=== PATIENT | male | born 1955 | race Two or more races ===

== ENCOUNTER 2017-07-04 16:29 | Emergency (ER) | payer MEDICARE, MEDICAID ==
[~2017-07-04 16:29] MED LIST: ASP325 PO; ESOM40CA42 PO; IBUP400T13 PO; LOR75 PO; PROM-110 PO; PROM25SU8 RC
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
[2017-07-04] MEDS ORDERED: VENL150C61 PO (16:42)
[2017-07-04] MEDS ORDERED: MIRT-22 PO (16:42)
[2017-07-04] MEDS ORDERED: TAMS0.4C70 PO (16:42)
[2017-07-04] MEDS ORDERED: DICL-195 PO (16:42)
[2017-07-04] MEDS ORDERED: LORazepam 1 MG TAB PO ONE (16:55)
[2017-07-04 17:30] VITALS: BP 124/99
[2017-07-04 17:38] LABS: PLATELET COUNT, AUTOMATED 227 K/uL (150-450)
== END 2017-07-04 18:28 ==
LOC: ER 16:33
DX: F32.9 Major depressive disorder, single episode, unspecified (principal); R45.851 Suicidal ideations
CPT/HCPCS: 36415; 80305; 81001; 83735; 84443; 85025; 99283; A9270; G0480; 80320; 80329; 82040; 82247; 82310; 82374; 82435; 82565; 82947; 84075; 84132; 84155; 84295; 84450; 84460; 84520

== ENCOUNTER 2017-07-04 18:06 | Inpatient (IN) | payer MEDICARE, MEDICAID ==
[~2017-07-04] VITALS: Ht 172.7 cm; Wt 113.4 kg
[~2017-07-04 18:06] MED LIST changes: +DICL-195 PO; +MIRT-22 PO; +TAMS0.4C70 PO; +VENL150C61 PO
[2017-07-04 18:45] VITALS: BP 130/96
[2017-07-04 20:34] VITALS: BP 130/96
[2017-07-04] MEDS: MIRTAZAPINE 30 MG TAB 30 MG TAB PO SCH (21:51)
[2017-07-04] MEDS: DICLOFENAC SOD 75 MG TABCR PO SCH (21:51)
[2017-07-04] MEDS ORDERED: MAG HYD/AL HYD/SIMETH 30ML UDC PO PRN (22:20)
[2017-07-05 04:01] VITALS: BP 154/110
[2017-07-05] MEDS: MULTIVITAMINS TAB PO SCH (08:14)
[2017-07-05] MEDS: VENLAFAXINE XR 75 MG CAPCR PO SCH (08:15)
[2017-07-05] MEDS: DICLOFENAC SOD 75 MG TABCR PO SCH ×2 (08:15→18:24)
[2017-07-05] MEDS: TAMSULOSIN HCL 0.4 MG CAP PO SCH (09:04)
[2017-07-05] MEDS ORDERED: CHOLECALCIFEROL 1000 UNIT TAB PO SCH (09:55)
[2017-07-05] MEDS: OMEGA-3 500 MG CAP PO SCH (10:06)
[2017-07-05 11:12] VITALS: BP 119/85
[2017-07-05] MEDS ORDERED: CHOLECALCIFEROL 1000 UNIT TAB PO ONE (12:20)
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
[2017-07-05] MEDS: ACETAMINOPHEN 325 MG TAB PO PRN (20:39)
[2017-07-05] MEDS: MIRTAZAPINE 30 MG TAB 30 MG TAB PO SCH (20:39)
[2017-07-06 06:14] VITALS: BP 109/72
[2017-07-06] MEDS: CHOLECALCIFEROL 1000 UNIT TAB PO SCH (08:02)
[2017-07-06] MEDS: OMEGA-3 500 MG CAP PO SCH (08:02)
[2017-07-06] MEDS: DICLOFENAC SOD 75 MG TABCR PO SCH ×2 (08:03→17:24)
[2017-07-06] MEDS: MULTIVITAMINS TAB PO SCH (08:03)
[2017-07-06] MEDS: VENLAFAXINE XR 75 MG CAPCR PO SCH (08:03)
[2017-07-06] MEDS: TAMSULOSIN HCL 0.4 MG CAP PO SCH (08:40)
[2017-07-06 09:23] VITALS: BP 108/73
--- NOTE | 2017-07-06 10:14 | BHS Progress Note ---
[facility] - Subjective Progress Notes Subjective Patient polite and cooperative with care, and interacting well with family members on the phone during treatment team meeting. Patient is no recognizing that he and his would be better served if his were to remain in the [facility], Patient's mood improving and he will have sleep study tonight. Will continue treatment, and likely discharge tomorrow. Suicidal Ideation: Resolving Homicidal Ideation: None [facility] - Objective Physical Exam Vital Signs Vital Signs Date Time Temp Pulse Resp B/P (MAP) Pulse Ox O2 Delivery O2 Flow Rate FiO2 07/06/17 09:23 99.3 75 108/73 (85) 95 Room Air 07/06/17 06:14 2.0 07/05/17 04:01 18 Hematology Test 07/05/17 10:10 Vitamin D 25-Hydroxy 17 ng/ml (30-100) Free Thyroxine 0.98 ng/dl (0.78-2.19) Chemistry Test 07/05/17 10:10 Vitamin D 25-Hydroxy 17 ng/ml (30-100) Free Thyroxine 0.98 ng/dl (0.78-2.19) Muscle Strength and Tone: Other (baseline) Gait and Station: Other (baseline) [facility] Medications Reviewed: Side Effects, Benefits of Medication, Risks Mental Status Exam General Appearance: Casual, Well Groomed, Good Eye Contact, Cooperative, Polite , Good Interaction, Tearful, No Psychomotor Agitation, No Psychomotor Retardation, No Bizarre Mannerisms, No Tics Speech: Clear, Spontaneous, Normal Rate, Normal Rhythm, Normal Volume, Normal Tone Mood: Dysthmic/Depressed (improving) Affect: Calm, Neutral, Tearful Thought Process: Organized, Logical, Goal Directed, No Loose Associations, No Flight of Ideas Thought Content: Suicidal Ideation (resolving), No Homicidal Ideation, No Delusions, No Auditory Halllucinations, No Visual Hallucinations, No Thought Broadcasting, No Ideas of Reference, No Obsessions, No Compulsions Sensorium: Clear Cognition: Alert & Oriented-Person, Alert & Oriented-Place, Alert & Oriented- Time Memory: Immediate, Recent, Remote Intelligence: Average Insight Judgment: Fair [facility] Assessment and Plan [id number] Encounter Date: Jul 06, 2017 [id number] Encounter Time: 09:40 [facility] Plan: Necessary Precautions, Individual/Group Therapy, Admin/Titrate Meds, Educate Patient Tobacco Medications: Not Appropriate Condition Multpiple Antipsychotics Used: No Problems: (1) Adjustment disorder with depressed mood Status: Chronic Assessment & Plan: floor care specialist burn out, medical stressors, untreated sleep apnea. (2) Post traumatic stress disorder (PTSD) Status: Chronic Assessment & Plan: multiple traumatic stressors in his life that have been unaddressed Condition 1. sleep study tonight. 2. no medication changes. 3. potential discharge tomorrow. ROSELINE IGNACIO MD Jul 06, 2017 10:14
[2017-07-06] MEDS: ACETAMINOPHEN 325 MG TAB PO PRN ×2 (15:34→20:25)
[2017-07-06 18:58] VITALS: BP 106/63
[2017-07-06] MEDS: MIRTAZAPINE 30 MG TAB 30 MG TAB PO SCH (20:23)
[2017-07-07 05:44] VITALS: BP 115/79
[2017-07-07] MEDS: CHOLECALCIFEROL 1000 UNIT TAB PO SCH (08:17)
[2017-07-07] MEDS: VENLAFAXINE XR 75 MG CAPCR PO SCH (08:18)
[2017-07-07] MEDS: OMEGA-3 500 MG CAP PO SCH (08:18)
[2017-07-07] MEDS: MULTIVITAMINS TAB PO SCH (08:19)
[2017-07-07] MEDS: DICLOFENAC SOD 75 MG TABCR PO SCH (08:20)
[2017-07-07 08:30] VITALS: BP 112/76
[2017-07-07] MEDS: TAMSULOSIN HCL 0.4 MG CAP PO SCH (08:51)
[2017-07-07] MEDS ORDERED: OMEG1CAP35 PO (09:33)
[2017-07-07] MEDS ORDERED: MULT-1379 PO (09:34)
[2017-07-07] MEDS ORDERED: CHOL10005 PO (09:35)
--- NOTE | 2017-07-09 14:56 | DISCHARGE SUMMARY ---
DATE OF ADMISSION: July 04, 2017 DATE OF DISCHARGE: July 07, 2017 The patient was seen for this discharge note on the morning of 07 July 2017 at approximately 1100 hours. FINAL DIAGNOSES PER DSM-V 1. Adjustment disorder, depressed mood. 2. 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 3. Obstructive sleep apnea. 4. Social stressors dealing with alien . 5. Patient also likely having probable posttraumatic stress disorder relating to multiple traumas suffered earlier in life and as of yet unaddressed through outpatient providers. REASON FOR ADMISSION This is a very pleasant, cooperative 62-year-old male who appears to be a very accurate historian. The patient somewhat resistant to caring for himself as patient is a very giving man and continued to care for his ailing at home who suffers from physical complications related to stroke and advancing dementia as well. Patient continued to care for her at home even though patient himself having physical disabilities. Patient is very spiritual. Catholicism is very important to him, but patient eventually reaching a point that he was considering suicide and had a detailed plan worked out. Patient was cooperative with [facility] staff who engaged the patient in coming to the Emergency Room under an emergency detainment. Patient's was subsequently extracted from the home as no care provider existed while patient was on the behavioral health floor. The patient's then subsequently transferred to [facility] from overnight stay on medical floor, patient himself coming to realize that her level of care exceeded his abilities at home. Patient's mood slowly started to improve on the unit. Patient on current outpatient medications. He was able to obtain a sleep study to address longstanding sleep apnea issues that patient was not caring for as well and awaiting results of sleep study at this time. Patient then later discharged to home back into the care of [facility] and outpatient providers. Patient's was to remain in the [facility]. EXAMINATION PHYSICAL EXAMINATION: Please see emergency room note. Notable for 62-year-old male, no acute medical distress, having some chronic pain concerning right hip. VITAL SIGNS: Time of admission showed temperature 98.8, pulse 80, respiratory rate 18, blood pressure 130/96, and pulse oximetry 95 on room air. Time of discharge, temperature 98.9, pulse 90, respiratory rate 16, blood pressure 112/ 76, and pulse oximetry 92 on room air. LABORATORY DATA Vitamin D 25-hydroxy noted to be low at 17. Free T4 of 0.98, free T3 slightly elevated at 5.3, TSH 2.34. CBC unremarkable. CMP unremarkable. Toxicology screen negative with an undetectable serum alcohol level. Urinalysis was overall unremarkable. MENTAL STATUS EXAMINATION AT TIME OF DISCHARGE GENERAL APPEARANCE, BEHAVIOR, AND ATTITUDE: Patient accepting of 's condition requiring her to remain in long-term care facility from now on. Patient indicating mood had improved and agreed to follow up with [facility] again and any other providers necessary for his care. Making good eye contact. SPEECH: Within normal limits. Regular rate, rhythm, volume, and tone. MOOD: Described as improving. AFFECT: Full and bright at times and mood congruent overall. THOUGHT PROCESS: Logical, goal directed. No loose associations or flight of ideas. THOUGHT CONTENT: Free of auditory or visual hallucinations, ideas of reference , thought broadcasting, delusions, obsessions, compulsions. Patient denying adamantly any further suicidal thoughts or homicidal ideations. SENSORIUM: Clear. COGNITION: Alert and oriented to person, place, time, situation. MEMORY: Immediate, recent, and remote estimated intact. INTELLIGENCE: Average based on interview. INSIGHT AND JUDGMENT: Considered grossly intact and appropriate for observation in an outpatient setting. RESULTS OF TESTING IMAGING: None. LABORATORY DATA: See above. CONSULTATIONS None. TREATMENT Patient remained on current medications as prescribed by outpatient provider, which patient reported have been helpful. Patient did participate in individual and group therapy. HOSPITAL COURSE Patient very cooperative with stay. Patient appeared to be a very accurate and honest historian. Patient was able to complete a formal sleep study while on the unit, and we await those results. CONDITION OF PATIENT ON DISCHARGE Stable. Considered a minimal risk to himself or others and appropriate for outpatient care. DISPOSITION Patient discharged to home. He would continue outpatient meds. Patient would remain on nasal cannula O2 at night at 2L until sleep study results would come in. Patient would then follow up with recommendations through primary care provider, Dr. Velasquez. The patient would follow up with [facility], primary care provider as necessary. He was given the crisis line should symptoms return. Patient would remain on Effexor XR 150 mg daily, fish oil 1000 mg daily , Flomax 0.4 mg daily, Remeron 30 mg at bedtime, multivitamin with minerals daily, vitamin D3 4000 units daily, Voltaren 75 mg at breakfast and supper. He was given the crisis line should symptoms return. Risks, benefits, and alternatives of above discharge plan were discussed. Informed consent was given to proceed with above discharge plan by this competent patient and [facility], whom had knowledge of patient's discharge. FELIPA
== END 2017-07-07 10:56 | disposition home or self-care (01) | DRG 881 ==
LOC: BHS 18:06
PROVIDERS: ADMIT Psychiatry & Neurology Psychiatry; ATTEND Psychiatry & Neurology Psychiatry
DX: F43.21 Adjustment disorder with depressed mood (principal); R45.851 Suicidal ideations; F06.32 Mood disorder due to known physiological condition with major depressive-like episode; G47.33 Obstructive sleep apnea (adult) (pediatric); F43.12 Post-traumatic stress disorder, chronic; I10 Essential (primary) hypertension; K21.9 Gastro-esophageal reflux disease without esophagitis; N44.2 Benign cyst of testis; Z62.810 Personal history of physical and sexual abuse in childhood; Z73.3 Stress, not elsewhere classified; Z63.6 Dependent relative needing care at home; Z91.19 Patient's noncompliance with other medical treatment and regimen; Z91.5 Personal history of self-harm; Z81.1 Family history of alcohol abuse and dependence; Z90.49 Acquired absence of other specified parts of digestive tract
CPT/HCPCS: 36415; 82306; 84439; 84481

== ENCOUNTER → 2017-07-06 | Outpatient (CLI) | payer MEDICARE, MEDICAID ==
[~2017-07-06] MED LIST changes: +CHOL10005 PO; +MULT-1379 PO; +OMEG1CAP35 PO
== END ==
LOC: RESP 19:44
PROVIDERS: ATTEND Psychiatry & Neurology Psychiatry
DX: G47.33 Obstructive sleep apnea (adult) (pediatric) (principal); G47.36 Sleep related hypoventilation in conditions classified elsewhere; G47.61 Periodic limb movement disorder; E66.9 Obesity, unspecified

== ENCOUNTER 2017-07-21 03:51 | Observation (INO) | payer MEDICARE, MEDICAID ==
--- NOTE | 2017-07-20 13:42 | HISTORY AND PHYSICAL ---
DATE OF ADMISSION: July 21, 2017 CHIEF COMPLAINT Phimosis with glandular adhesions and right chronic orchialgia. HISTORY OF PRESENT ILLNESS The patient is a 62-year-old Latin-[place] male with a long history of right testicular pain and discomfort, which began in 2004 with an episode of epididymitis. He was recently referred to the urology clinic by Dr. Smith office for increasing pain. When seen in the clinic, his urinalysis was unremarkable. His PSA was 1.7. He continued to have significant pain on exam involving the right testis and epididymis. A cord block was given on June 29, 2017, which resulted in complete resolution of his pain and discomfort for several hours. However, it has returned to its baseline. Physical exam also revealed a significant glandular adhesion with phimosis, for which the patient desires definitive surgical treatment. Options for his right orchialgia were explained, including watchful waiting, nonsteroidal anti-inflammatories, operative removal with orchiectomy or possible denervation procedure. PAST MEDICAL HISTORY 1. Hypertension. 2. Sleep apnea. 3. Degenerative joint disease. 4. Depression. 5. BPH. 6. Gastroesophageal reflux disease. PAST SURGICAL HISTORY 1. Cholecystectomy. 2. Knee arthroscopy. 3. Tonsillectomy. CURRENT MEDICATIONS 1. Multivitamins. 2. Mirtazapine. 3. Flomax. 4. Venlafaxine, or Effexor. ALLERGIES No known drug allergies. SOCIAL HISTORY Patient is and lives in [place], [place]. REVIEW OF SYSTEMS Patient denies productive cough, fever, chills, chest pain, shortness of breath , nausea, vomiting, gross hematuria or flank pain. PHYSICAL EXAMINATION GENERAL: Patient is a well-developed, well-nourished adult male in no acute distress. HEENT: Normocephalic, atraumatic. CHEST: Clear to auscultation bilaterally. CARDIOVASCULAR EXAM: Regular rate and rhythm. ABDOMINAL EXAM: Soft, nontender, no masses are palpated. EXAM: Deferred to the OR. EXTREMITY EXAM: Without clubbing, cyanosis or edema. NEUROLOGICAL EXAM: Nonfocal. IMPRESSION This is a 62-year-old male with chronic glandular adhesion with phimosis as well as chronic right orchialgia. PLAN We will perform a simple right orchiectomy followed by circumcision. FELIPA
[~2017-07-21] VITALS: Ht 172.7 cm; Wt 113.4 kg
[2017-07-21] VITALS (9 sets, daily range): BP systolic 96–191; BP diastolic 66–117
[2017-07-21 06:26] LABS: PLATELET COUNT, AUTOMATED 209 K/uL (150-450)
[2017-07-21] MEDS ORDERED: FAMOTIDINE 20 MG TAB PO ONE (06:45)
[2017-07-21] MEDS ORDERED: LIDOCAINE/SOD BICARB 8.4% SYR ID ONE (06:45)
[2017-07-21] MEDS ORDERED: NORMOSOL R SOLN(*) 1000 ML BAG 1,000 ML IV PRN (06:45)
[2017-07-21] MEDS ORDERED: MIDAZOLAM 2 MG/2 ML VIAL IVP PRN (06:45)
[2017-07-21] MEDS ORDERED: ceFAZolin(*) 1 GM VIAL 1 GM in NS(*) 0.9% 100 ML ADDVANT BAG 100 ML IVPB ONE (06:45)
[2017-07-21] MEDS ORDERED: NEOMYCIN/POLYMYX/BACITR 30 GM TP ONE (07:17)
[2017-07-21] MEDS ORDERED: ROPIVACAINE 0.2% 20 ML VIAL ONE (07:18)
[2017-07-21] MEDS ORDERED: POVIDONE IOD 10% OINT 30 GM TB TP ONE (07:18)
[2017-07-21] MEDS ORDERED: fentaNYL CITR 100 MCG/2 ML AMP ONE ×3 (07:20→09:58)
[2017-07-21] MEDS ORDERED: DEXAMETHASONE SOD 4 MG/ML VIAL ONE (07:20)
[2017-07-21] MEDS ORDERED: LIDOCAINE MPF 1% 5 ML VIAL ONE (07:20)
[2017-07-21] MEDS ORDERED: PROPOFOL EMUL(*) 10MG/ML 20 ML 20 ML ONE (07:20)
[2017-07-21] MEDS ORDERED: ONDANSETRON 4 MG/2 ML VIAL ONE (07:20)
[2017-07-21] MEDS ORDERED: NS IR ONE (08:25)
[2017-07-21] MEDS ORDERED: [UNRECOGNIZED DRUG - OTHER] IR ONE (08:25)
[2017-07-21] MEDS ORDERED: NS(*) 0.9% 1000 ML BAG 1,000 ML IV PRN (09:45)
[2017-07-21] MEDS ORDERED: MAG HYD/AL HYD/SIMETH 30ML UDC PO PRN (09:50)
[2017-07-21] MEDS ORDERED: MAGNESIUM HYDROXIDE* 30ML UDCP PO PRN (09:50)
[2017-07-21] MEDS ORDERED: ZOLPIDEM TARTRATE 10 MG TAB PO PRN (09:50)
[2017-07-21] MEDS: NEOMYCIN/POLYMYX/BACITR OINT 1 PACKET TP SCH ×2 (14:00→20:22)
[2017-07-21] MEDS: IBUPROFEN 600 MG TAB PO PRN ×2 (14:09→20:22)
--- NOTE | 2017-07-21 17:44 | OPERATIVE REPORT 1 ---
EVENT DATE: July 21, 2017 SURGEON: Rashi Cantu MD. ANESTHESIOLOGIST: Melvin De MD ANESTHESIA: General anesthetic. PREOPERATIVE DIAGNOSES 1. Chronic right orchialgia. 2. Phimosis with glandular adhesion. POSTOPERATIVE DIAGNOSES 1. Chronic right orchialgia. 2. Phimosis with glandular adhesion. PROCEDURES PERFORMED 1. Right orchiectomy. 2. Adult circumcision. ESTIMATED BLOOD LOSS 10 mL INTRAVENOUS FLUIDS Crystalloid. DRAINS None. COMPLICATIONS None. PATHOLOGY Testis and foreskin for permanent analysis. CONDITION Patient awakened in the operating room and taken to the recovery area in stable condition. STATEMENT OF MEDICAL NECESSITY Patient is a 62-year-old white male with a long history of chronic right orchialgia which has been recently progressing. The patient did have a cord block in the office which resulted in complete resolution of pain for a short time. Physical exam revealed the entire testis and epididymis to be extremely sensitive and painful to exam, but no masses were palpated. Patient also has chronic phimosis with some chronic BXO changes into the prepuce. We were unable to retract his foreskin beyond approximately mid glans secondary to dense glandular adhesions. He is also being brought to the operating room for planned circumcision. Specific risks and benefits of both these procedures were discussed including bleeding, infection, scar formation, failure to solve pain or recurrent pain, and need for secondary procedure. Operative consent is signed and on the chart. DESCRIPTION OF OPERATION PERFORMED Patient was brought to the operating room. After general anesthetic was obtained, he was placed supine on the operating room table and prepped and draped in the usual sterile manner. A 4 cm right lower quadrant skin incision was made just above the external ring. It was taken down through the external ring with electrocautery. At this point, the right scrotum was everted to deliver the testis to the incision. The gubernacular attachments were taken down. The vas was isolated from the other cord structures at the external ring. It was doubly cross-clamped and incised. The end was fulgurated, and two #2 silks were tied on the vas stump. At this point, 0.25% ropivacaine was given along the cord at the internal ring. Next, the cord was isolated at the external ring and cross-clamped with two right-angle clamps. The cord and testis were then sharply removed and sent for permanent analysis. The cord was then tied first with a distal 0 silk ligature stitch, followed by a free tie more proximally. After release of the clamps, there was no bleeding identified. This wound was irrigated with copious amounts of antibiotic solution. The deep tissues were closed with interrupted 3-0 chromics. The skin was closed with a running subcuticular 4-0 Vicryl, and skin adhesive was applied. Following this, the circumcision was done. Two right-angled clamps were placed on the dorsal aspect of the foreskin, and a dorsal slit incision was performed to pull the remainder of the foreskin back and tied down the glandular adhesions. The penis was then prepped with Betadine solution. Gloves were changed, and then the circumcision was performed. First, the outer table was marked with a marking pen. The foreskin was then retracted and the inner table likewise marked. Both of these areas were incised with a 15 blade knife. The incisions were connected dorsally, and the foreskin was removed circumferentially with electrocautery. Small bleeding vessels at the skin edge were controlled with electrocautery, and then the skin edges were reapproximated with interrupted 4-0 chromic to complete the circumcision. Antibiotic ointment was placed on the glans and the incision, and a rolled gauze was placed around the penis. At the conclusion of the case, a sterile dressing was placed on the right lower quadrant skin incision, and a fluff dressing with scrotal support was applied. The patient was awakened in the operating room and taken to the recovery area in stable condition. The plan will be to keep the patient for 24-hour observation secondary to his social situation with no other home care. We will allow him to go home tomorrow on Bos[place], Colace, and Motrin. He is to continue a scrotal support and ice pack for 36 hours. We will plan to see him in the Urologic Clinic in two to four weeks. FELIPA
[2017-07-21] MEDS: DOCUSATE SODIUM 100 MG CAP PO SCH (20:22)
[2017-07-21] MEDS ORDERED: MIRTAZAPINE 15 MG TAB PO SCH (21:00)
[2017-07-22 01:07] VITALS: BP 93/52
[2017-07-22 03:30] VITALS: BP 100/66
[2017-07-22] MEDS: IBUPROFEN 600 MG TAB PO PRN ×2 (03:34→11:00)
[2017-07-22 07:36] VITALS: BP 104/76
[2017-07-22] MEDS: DOCUSATE SODIUM 100 MG CAP PO SCH (08:40)
[2017-07-22] MEDS: NEOMYCIN/POLYMYX/BACITR OINT 1 PACKET TP SCH (08:40)
[2017-07-22] MEDS ORDERED: TAMSULOSIN HCL 0.4 MG CAP PO SCH (09:00)
[2017-07-22] MEDS ORDERED: VENLAFAXINE XR 75 MG CAPCR PO SCH (09:00)
[2017-07-22 09:09] VITALS: Ht 172.7 cm; Wt 113.4 kg
[2017-07-22] MEDS ORDERED: NEOM28OI TOP (09:20)
[2017-07-22] MEDS ORDERED: IBUP600T22 PO (09:21)
[2017-07-22] MEDS ORDERED: HYDR-4309 PO (09:22)
[2017-07-22] MEDS ORDERED: DOCU-416 PO (09:23)
== END 2017-07-22 09:16 | disposition home or self-care (01) ==
LOC: OR 03:51 → MED 10:20
PROVIDERS: ADMIT Urology; ATTEND Urology
DX: N47.1 Phimosis (principal); N50.812 Left testicular pain; N50.811 Right testicular pain
CPT/HCPCS: 36415; 54150; 54520; 81001; 85025; 87088; 88305; A9270; G0378; J0690; J1100; J2001; J2250; J2405; J2704; J2795; J3010; J7030; J7050; 82040; 82247; 82310; 82374; 82435; 82565; 82947; 84075; 84132; 84155; 84295; 84450; 84460; 84520

== ENCOUNTER → 2017-08-13 | Outpatient (CLI) | payer MEDICARE, MEDICAID ==
[2017-07-22 09:09] VITALS: BMI 38.0
[~2017-08-13] MED LIST changes: +DOCU-416 PO; +HYDR-4309 PO; +IBUP600T22 PO; +NEOM28OI TOP; +TRAM-420 PO
== END ==
LOC: RESP 19:46
PROVIDERS: ATTEND Family Medicine
DX: G47.33 Obstructive sleep apnea (adult) (pediatric) (principal); G47.36 Sleep related hypoventilation in conditions classified elsewhere; R40.0 Somnolence; E66.9 Obesity, unspecified

== ENCOUNTER 2017-08-18 03:25 | Day surgery (SDC) | payer MEDICARE, MEDICAID ==
[2017-07-22 09:09] VITALS: Ht 172.7 cm; Wt 109.8 kg
[~2017-08-18] VITALS: Ht 172.7 cm; Wt 109.8 kg
[2017-08-18] MEDS ORDERED: PROPOFOL EMUL(*) 10MG/ML 20 ML 60 ML ONE (10:47)
[2017-08-18] MEDS ORDERED: LIDOCAINE MPF 1% 5 ML VIAL ONE (10:47)
[2017-08-18 13:30] VITALS: BP 94/79
[2017-08-18] MEDS ORDERED: NORMOSOL R SOLN(*) 1000 ML BAG 1,000 ML IV PRN (13:50)
[2017-08-18] MEDS ORDERED: LIDOCAINE/SOD BICARB 8.4% SYR ID ONE (13:50)
[2017-08-18 14:45] VITALS: BP 109/70
[2017-08-18 15:23] VITALS: BP 120/79
== END 2017-08-18 15:47 | disposition home or self-care (01) ==
LOC: OR 03:25
PROVIDERS: ATTEND Family Medicine
DX: Z12.11 Encounter for screening for malignant neoplasm of colon (principal); Z80.0 Family history of malignant neoplasm of digestive organs; D12.4 Benign neoplasm of descending colon
CPT/HCPCS: 00811; 45380; 88305; J2001; J2704

== ENCOUNTER 2017-09-15 20:48 | Emergency (ER) | payer MEDICARE, MEDICAID ==
[2017-07-22 09:09] VITALS: Wt 109.8 kg
[~2017-09-15 20:48] MED LIST changes: -OXYC-865 PO
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
[2017-09-15 22:40] VITALS: BP 117/84
--- NOTE | 2017-09-15 22:46 | RADIOLOGY IMAGING REPORT ---
FACILITY: [facility] PATIENT NAME: Ajay Elizabeth : 1955 MR: [id number] V: [id number] EXAM DATE: ORDERING PHYSICIAN: MARTIN SHERIDAN TECHNOLOGIST: Location: [facility] - [place] Patient: Ajay Elizabeth : 1955 Visit/Account:[id number] Date of Sevice: 09/15/2017 RIGHT KNEE: Indication: Injury. Technique: 3 views of the knee were obtained. Comparison: 03/28/2008 Findings: There is no evidence of fracture, dislocation, or other acute deformity. There is normal mi neralization of the skeletal structures. There is no evidence of joint space narrowing or osteophyte formation. The periarticular soft tissues appear unremarkable. IMPRESSION: No acute deformity or significant change. Report Dictated By: Saul Loyd MD at 09/15/2017 10:31 PM Report E-Signed By: Saul Loyd MD at 09/15/2017 10:41 PM [id number]
[2017-09-15] MEDS ORDERED: OXYC-865 PO (22:58)
[2017-09-15] MEDS ORDERED: oxyCODONE/ACETAMIN 5/325MG TH 2 TAB/BOTTLE PO ONE (23:00)
== END 2017-09-15 23:10 | disposition home or self-care (01) ==
LOC: ER 20:57
DX: S83.411A Sprain of medial collateral ligament of right knee, initial encounter (principal); W50.1XXA Accidental kick by another person, initial encounter
CPT/HCPCS: 99283; L1830

== ENCOUNTER → 2017-09-15 | Outpatient (CLI) | payer MEDICARE, MEDICAID ==
[2017-07-22 09:09] VITALS: BMI 38.0
[~2017-09-15] MED LIST changes: +OXYC-865 PO
== END ==
LOC: AMB 20:20
PROVIDERS: ATTEND Nurse Practitioner
DX: M25.561 Pain in right knee (principal); M79.89 Other specified soft tissue disorders; S09.90XA Unspecified injury of head, initial encounter; W19.XXXA Unspecified fall, initial encounter
CPT/HCPCS: A0425; A0427

== ENCOUNTER → 2018-08-21 | Outpatient (CLI) | payer MEDICARE, MEDICAID ==
[2017-07-22 09:09] VITALS: BMI 38.0
[~2018-08-21] MED LIST changes: -HYDR-4309 PO; +HYDR-653 PO; +OXYC-865 PO
--- NOTE | 2018-08-21 13:20 | RADIOLOGY IMAGING REPORT ---
[place] [facility] [place]IENT NAME: Ajay Elizabeth : 1955 MR: [id number] V: [id number] EXAM DATE: ORDERING PHYSICIAN: HERMINIO HSIEH TECHNOLOGIST: Location[place] [facility] [place] Patient: Ajay Elizabeth : 1955 Visit/Account:[id number] Date of Sevice: 08/21/2018 CHEST PA LAT INDICATION: Shortness of breath COMPARISON: 04/29/2008 FINDINGS: Heart size within normal limits. There is no focal infiltrate or lobar consolidation. There is mild elevation of the right hemidiaph ragm. There is no pneumothorax or pleural effusion. IMPRESSION: 1. No acute cardiopulmonary process. Report Dictated By: Derrick Santana at 08/21/2018 1:15 PM Report E-Signed By: Derrick Santana at 08/21/2018 1:16 PM WSN:[id number]
== END ==
LOC: RAD 12:39
PROVIDERS: ATTEND Family Medicine
DX: R91.8 Other nonspecific abnormal finding of lung field (principal)
CPT/HCPCS: 71046

== ENCOUNTER → 2018-08-22 | Outpatient (REF) | payer MEDICARE, MEDICAID ==
[2017-07-22 09:09] VITALS: BMI 38.0
== END ==
LOC: ZZSENDIN 16:17
PROVIDERS: ATTEND Family Medicine
DX: J45.41 Moderate persistent asthma with (acute) exacerbation (principal)
CPT/HCPCS: 85379

== ENCOUNTER → 2018-08-23 | Outpatient (CLI) | payer MEDICARE, MEDICAID ==
[2017-07-22 09:09] VITALS: BMI 38.0
[~2018-08-23] MED LIST changes: +IOPAMIDOL 76% 150 ML INFUS BTL 150 ML ONE; +NS(*) 0.9% 50 ML BAG 50 ML ONE
--- NOTE | 2018-08-23 16:05 | RADIOLOGY IMAGING REPORT ---
[facility] PATIENT NAME: Ajay Elizabeth : 1955 MR: [id number] V: [id number] EXAM DATE: ORDERING PHYSICIAN: HERMINIO HSIEH TECHNOLOGIST: [facility] Patient: Ajay Elizabeth : 1955 Visit/Account:[id number] Date of Sevice: 08/23/2018 CT CTA CHEST W & W/O CON EXAMINATION: CTA of the chest with IV contrast History : Acute respiratory distress TECHNIQUE: Pulmonary embolus protocol - Thin-slice axial imaging of the chest was performed during maximal pulmonary arterial opacification with intravenous nonionic iodinated contrast. 3D coronal sla b MIPs and 2D reconstructions in the coronal and sagittal planes were performed to aid in pulmonary e mbolus detection. [employer] images have been stored on PACS. One of the following dose optimization techniques was utilized in the performance of this exam: Autom ated exposure control; adjustment of the mA and/or kV according to the patient's size; or use of an i terative reconstruction technique. Specific details can be referenced in the facility's radiology C T exam operational policy. Contrast: 75 cc of Isovue-370 COMPARISON STUDIES: Chest x-ray 2008. FINDINGS: Please note that this exam is optimized for assessment of the pulmonary arteries and is not intended as a diagnostic study of the thoracic aorta, coronary arteries or venous structures. Angiographic Findings: Pulmonary arteries: The visualized pulmonary emboli to the segmental level. More distal evaluation is precluded by poor bolus opacification. Other vasculature: Minimal calcification of the LAD is noted. Additional non-angiographic findings: Lungs / Pleura: Right hemidiaphragm is elevated and query right diaphragmatic paralysis. Atelectasi s at the right lung base is noted. Mediastinum / Terrie: negative. Heart / Pericardium: negative. Lymph node assessment: negative Musculoskeletal / Body wall: Degenerative changes are noted Upper abdomen: Gallbladder is absent. Pancreas is not entirely evaluated. IMPRESSION: 1. No evidence for pulmonary emboli to the segmental level. 2. No acute cardiopulmonary disease. 3. Chronic elevation of the right hemidiaphragm. Query right diaphragmatic paralysis. Report Dictated By: Hector Musa MD at 08/23/2018 3:25 PM Report E-Signed By: Hector Musa MD at 08/23/2018 4:00 PM WSN:[id number]
== END ==
LOC: CT 13:38
PROVIDERS: ATTEND Family Medicine
DX: Z01.812 Encounter for preprocedural laboratory examination (principal); R06.03 Acute respiratory distress
CPT/HCPCS: 36415; 71275; J7050; Q9967; 82040; 82247; 82310; 82374; 82435; 82565; 82947; 84075; 84132; 84155; 84295; 84450; 84460; 84520

== ENCOUNTER 2018-09-05 14:04 | Emergency (ER) | payer MEDICARE, MEDICAID ==
[2017-07-22 09:09] VITALS: Wt 127.0 kg
[~2018-09-05 14:04] MED LIST changes: -GABA-549 PO
--- NOTE | 2018-09-05 14:13 | ER Report ---
History and Physical Time Seen By MD: 14:12 Hx. of Stated Complaint: FALL ON ICE - LANDED WITH BENT RIGHT KNEE HPI/ROS CHIEF COMPLAINT: fall, knee injury HISTORY OF PRESENT ILLNESS: This is a 63 year old male. He slipped on some ice today, was trying to clean up spilled drink/ice. Stepped on ice, leg slipped from under him. Landed with knee bent, directly onto the right knee patella. Has severe pain in front and lateral side of knee, pain worsens with any pressure in the area or with any movement. Has normal sensation in the leg. some swelling present. No shortness of breath. No other musculoskeletal pain. Allergies: Coded Allergies: No Known Drug Allergies (Verified , 09/05/18) Home Meds Active Scripts Oxycodone Hcl/Acetaminophen (PERCOCET 5-325 MG TABLET) 1 Each Tablet, 1 EACH PO Q4H PRN for PAIN, #12 TAB 0 Refills Prov:TONY PARTIDA MD 09/05/18 Reported Medications Gabapentin (GABAPENTIN) 300 Mg Capsule, 600 MG PO DAILY, CAPSULE 09/05/18 Tramadol Hcl (TRAMADOL HCL) 50 Mg Tablet, 1-2 MG PO Q6-8H PRN for PAIN, TAB 08/16/17 Cholecalciferol (Vitamin D3) (VITAMIN D3) 1,000 Unit Tablet, 4000 UNIT PO QDAY, TAB 07/07/17 Multivits,Th W-Fe,Other Min (THERA-M) 1 Each Tablet, 1 EACH PO QDAY 07/07/17 [place]-3/Dha/Epa/Fish Oil (FISH OIL 500 MG SOFTGEL) 1 Each Capsule, 1000 MG PO QDAY, CAPSULE 07/07/17 Tamsulosin Hcl (TAMSULOSIN HCL) 0.4 Mg Cap.er.24h, 0.4 MG PO, CAP 07/04/17 Mirtazapine (MIRTAZAPINE) 15 Mg Tablet, 30 MG PO HS 07/04/17 Venlafaxine Hcl (EFFEXOR XR) 150 Mg Cap.er.24h, 150 MG PO QDAY 07/04/17 Discontinued Reported Medications Neomycn/Baci Zn/Pmyx Bs/Pramox (Triple Antibioti-Pain Rlf Oint) 28 Gm Oint...g., 1 TUBE TOP TID 07/22/17 Discontinued Scripts Oxycodone Hcl/Acetaminophen (PERCOCET 5-325 MG TABLET) 1 Each Tablet, 1 EACH PO Q4-6H for PAIN, #6 TAB 0 Refills Prov:MARTIN SHERIDAN MD 09/15/17 Reviewed Nurses Notes: Yes Hx Smoking: No Smoking Status: Never Smoker Exposure to Second Hand Smoke?: No Hx Substance Use Disorder: No Hx Alcohol Use: No Constitutional Vital Sign - Last 24 Hours 09/05/18 09/05/18 09/05/18 09/05/18 14:07 14:30 15:00 15:30 Temp 98.0 Pulse 78 80 80 78 Resp 20 B/P (MAP) 116/83 112/86 (95) 118/75 (89) 100/81 (87) Pulse Ox 93 93 92 O2 Delivery Nasal Cannula 09/05/18 16:00 Pulse 80 B/P (MAP) 113/79 (90) Pulse Ox 92 Physical Exam General Appearance: Alert, no acute distress Cardiac: Normal peripheral pulses and cap refill in the right leg. Musculoskeletal: Pain lateral side of the knee and anterior over the patella, pain worsens with active or passive range of motion. There is some swelling in the knee. Skin: No bruising or skin breakdown. Neuro: Normal sensation. DIFFERENTIAL DIAGNOSIS: After history and physical exam differential diagnosis was considered for knee injury from a fall, imaging to be done. Based on his pain will start an IV and give some fentanyl to help assist with x-rays. Medical Decision Making EKG/Imaging Imaging Exam type: KNEE 4 VIEW RIGHT History: fall onto right knee, anterior and lateral pain Comparison: None. Findings: Four views of the right knee were submitted. On the lateral view there appear to be several tiny well-corticated fragments projecting over the anterior aspect of the right knee joint. These could represent small loose bodies There are mild degenerative changes at the patellofemoral joint. There is mild narrowing of the medial compartment as well . There is a tiny metallic foreign body projecting in the soft tissues just an terior to the patella IMPRESSION: 1. Several well-corticated bony densities project over the anterior aspect of the right knee joint on the lateral view. These may represent tiny loose bodies. Mild degenerative changes involving the patellofemoral compartment in the medial compartment Tiny metallic foreign body projecting in the soft tissues just anterior to the patella Report Dictated By: Kathleen Parson MD at 09/05/2018 3:38 PM ED Course/Re-evaluation ED Course Imaging does not show acute fracture. Discussed results of the imaging showing strain. Recommended follow up with [facility]. Conservative management as described below. Decision to Disposition Date: September 05, 2018 Decision to Disposition Time: 15:54 Depart Departure Latest Vital Signs Vital Signs Date Time Temp Pulse Resp B/P (MAP) Pulse Ox O2 Delivery O2 Flow Rate FiO2 09/05/18 16:00 80 113/79 (90) 92 09/05/18 14:07 98.0 20 Nasal Cannula Impression: Primary Impression: Strain of right knee Condition: Improved Disposition: HOME OR SELF-CARE New Scripts Oxycodone Hcl/Acetaminophen (PERCOCET 5-325 MG TABLET) 1 Each Tablet 1 EACH PO Q4H PRN for PAIN, #12 TAB 0 Refills Prov: TONY PARTIDA MD 09/05/18 Patient Instructions: Knee Sprain (ED) Additional Instructions: Ibuprofen 200mg over the counter tablets, take 4 tablets three times a day with food. Percocet 5/325, one every 4 hours as needed for pain. Apply ice 20 minutes every 1-2 hours while awake. An NILO wrap can be used for compression to help reduce swelling. Rest the injured area, keep it elevated while at rest. Begin gentle range of motion exercises. Call and make an appointment with [facility], call today to schedule an appointment. Problem Qualifiers Primary Impression: Strain of right knee Encounter type: initial encounter Qualified Codes: S86.911A - Strain of unspecified muscle(s) and tendon(s) at lower leg level, right leg, initial encounter TONY PARTIDA MD September 05, 2018 14:13
[2018-09-05] MEDS ORDERED: GABA-549 PO (14:14)
[2018-09-05] MEDS ORDERED: fentaNYL CITR 100 MCG/2 ML AMP IVP ONE (14:30)
[2018-09-05] MEDS ORDERED: oxyCODON/ACET (*)5/325MG (CII) 1 TAB TAB PO ONE (15:45)
--- NOTE | 2018-09-05 15:47 | RADIOLOGY IMAGING REPORT ---
FACILITY: [facility] [place] PATIENT NAME: Ajay Elizabeth : 1955 MR: [id number] V: [id number] EXAM DATE: ORDERING PHYSICIAN: TONY PARTIDA TECHNOLOGIST: Location: [facility] [place] Patient: Ajay Elizabeth : 1955 Visit/Account:[id number] Date of Sevice: 09/05/2018 Exam type: KNEE 4 VIEW RIGHT History: fall onto right knee, anterior and lateral pain Comparison: None. Findings: Four views of the right knee were submitted. On the lateral view there appear to be several tiny wel l-corticated fragments projecting over the anterior aspect of the right knee joint. These could repr esent small loose bodies There are mild degenerative changes at the patellofemoral joint. There is m ild narrowing of the medial compartment as well . There is a tiny metallic foreign body projecting in the soft tissues just anterior to the patella IMPRESSION: 1. Several well-corticated bony densities project over the anterior aspect of the right knee joint o n the lateral view. These may represent tiny loose bodies. Mild degenerative changes involving the patellofemoral compartment in the medial compartment Tiny metallic foreign body projecting in the soft tissues just anterior to the patella Report Dictated By: Kathleen Parson MD at 09/05/2018 3:38 PM Report E-Signed By: Kathleen Parsno MD at 09/05/2018 3:42 PM WSN:[email or web address]
[2018-09-05] MEDS ORDERED: OXYC-865 PO (15:55)
[2018-09-05 16:00] VITALS: BP 113/79
== END 2018-09-05 16:00 | disposition home or self-care (01) ==
LOC: ER 14:17
DX: S86.911A Strain of unspecified muscle(s) and tendon(s) at lower leg level, right leg, initial encounter (principal); W18.39XA Other fall on same level, initial encounter
CPT/HCPCS: 73564; 96374; 99283; A9270; J3010

== ENCOUNTER → 2018-09-05 | Outpatient (CLI) | payer MEDICARE, MEDICAID ==
[2017-07-22 09:09] VITALS: BMI 38.0
[~2018-09-05] MED LIST changes: +GABA-549 PO; -IOPAMIDOL 76% 150 ML INFUS BTL 150 ML ONE; -NS(*) 0.9% 50 ML BAG 50 ML ONE
== END ==
LOC: AMB 13:40
PROVIDERS: ATTEND Nurse Practitioner
DX: M25.561 Pain in right knee (principal); W19.XXXA Unspecified fall, initial encounter
CPT/HCPCS: A0425; A0427